=== PATIENT | female | born 1960 | race Caucasian/White ===

== ENCOUNTER 2025-02-09 07:43 | Inpatient (IN) | payer MEDICARE, OTHER ==
[~2025-02-09] VITALS: Ht 162.6 cm; Wt 65.8 kg
[2025-02-09] MEDS ORDERED: dexaMETHasone SOD PHOSPHATE 1 ML ONE (09:11)
[2025-02-09] MEDS ORDERED: VANCOMYCIN 1 GM VIAL ONE (09:11)
[2025-02-09] MEDS ORDERED: LIDOCAINE 2%-EPI 1:100,000 30 ML VIAL ONE (09:11)
[2025-02-09 12:08] VITALS: BP 147/71; TEMP 97.6; O2SAT 96
[2025-02-09] MEDS ORDERED: LOSA25TA27 PO (12:13)
[2025-02-09] MEDS: IV NS 0.9% 1,000 ML IV PRN (13:43)
[2025-02-09] MEDS: ACETAMINOPHEN 325 MG TABLET PO PRN (13:51)
[2025-02-09] MEDS ORDERED: HYDROMORPHONE INJ 2 MG/ML DISP.SYRIN IV PRN (14:00)
[2025-02-09] MEDS ORDERED: ONDANSETRON HCL/PF 4 MG/2 ML VIAL IVP PRN ×2 (14:00→14:30)
[2025-02-09] MEDS ORDERED: MAGNESIUM HYDROXIDE 30 ML UDC PO PRN (14:30)
[2025-02-09] MEDS ORDERED: ACETAMINOPHEN 325 MG TABLET PO PRN (14:30)
[2025-02-09] MEDS ORDERED: Z GUARD REMEDY 4 OZ OINT TP PRN (14:30)
[2025-02-09] MEDS ORDERED: MAG HYDROX/AL HYDROX/SIMETH 30 ML UDC PO PRN (14:30)
[2025-02-09] MEDS: LOSARTAN POTASSIUM 25 MG TABLET PO SCH (16:43)
[2025-02-09 16:47] VITALS: BP 139/70; TEMP 97.5; O2SAT 94
[2025-02-09 20:00] VITALS: BP 133/63; TEMP 98.1; O2SAT 95
[2025-02-09] MEDS: VANCOMYCIN 1 GM in IV D5W 250ml IV SCH (20:10)
[2025-02-10 09:16] VITALS: BP 130/60; TEMP 98.1; O2SAT 97
== END 2025-02-10 10:15 | disposition home or self-care (01) | DRG 142 ==
LOC: DS 07:43 → MED 11:38
PROVIDERS: ADMIT Internal Medicine; ATTEND Internal Medicine
PROC: 0NSR04Z Reposition Maxilla with Internal Fixation Device, Open Approach (ICD-10-PCS; 2025-02-09)
PROC: 0NUR07Z Supplement Maxilla with Autologous Tissue Substitute, Open Approach (ICD-10-PCS; 2025-02-09)
PROC: 0NSV04Z Reposition Left Mandible with Internal Fixation Device, Open Approach (ICD-10-PCS; 2025-02-09)
PROC: 0NUV07Z Supplement Left Mandible with Autologous Tissue Substitute, Open Approach (ICD-10-PCS; 2025-02-09)
PROC: 0N5V0ZZ Destruction of Left Mandible, Open Approach (ICD-10-PCS; 2025-02-09)
PROC: 0N5R0ZZ Destruction of Maxilla, Open Approach (ICD-10-PCS; principal; 2025-02-09 10:00)
DX: S02.40DA Maxillary fracture, left side, initial encounter for closed fracture (principal); S02.69XA Fracture of mandible of other specified site, initial encounter for closed fracture; X58.XXXA Exposure to other specified factors, initial encounter; M27.2 Inflammatory conditions of jaws; J32.0 Chronic maxillary sinusitis; I10 Essential (primary) hypertension; Z82.49 Family history of ischemic heart disease and other diseases of the circulatory system; M27.49 Other cysts of jaw; D16.4 Benign neoplasm of bones of skull and face; I34.0 Nonrheumatic mitral (valve) insufficiency; Y93.9 Activity, unspecified; Y92.009 Unspecified place in unspecified non-institutional (private) residence as the place of occurrence of the external cause
CPT/HCPCS: 88305-TC; 88311-TC; A4223; A4338; C1713; G0378; J0461; J0690; J1100; J2704; J3370; J3490; J7030; J7060

== ENCOUNTER 2025-06-15 09:19 | Inpatient (IN) | payer MEDICARE, OTHER ==
[~2025-06-15] VITALS: Ht 160 cm; Wt 65.8 kg
[~2025-06-15 09:19] MED LIST: LOSA25TA27 PO
[2025-06-15 10:28] LABS: INR 1.01 (0.91-1.10)
[2025-06-15] MEDS ORDERED: LIDOCAINE 2%-EPI 1:100,000 30 ML VIAL ONE (11:32)
[2025-06-15] MEDS ORDERED: dexaMETHasone SOD PHOSPHATE 2 ML ONE (11:32)
[2025-06-15] MEDS ORDERED: VANCOMYCIN 1 GM VIAL ONE (11:32)
[2025-06-15] MEDS ORDERED: FENTANYL PF 100MCG/2ML AMPUL ONE (12:35)
[2025-06-15] MEDS ORDERED: ANAS1TAB50 PO (14:53)
[2025-06-15 15:16] VITALS: BP 134/79; TEMP 98.3; O2SAT 98
[2025-06-15] MEDS ORDERED: ONDANSETRON HCL/PF 4 MG/2 ML VIAL IVP PRN (15:30)
[2025-06-15] MEDS ORDERED: ACETAMINOPHEN 325 MG TABLET PO PRN (15:30)
[2025-06-15] MEDS ORDERED: HYDROMORPHONE 1 MG/1 ML DISP.SYRIN IV PRN (15:30)
[2025-06-15] MEDS: IV NS 0.9% 1,000 ML IV PRN (15:35)
[2025-06-15 16:00] VITALS: BP 112/60; TEMP 98.4; O2SAT 96
[2025-06-15 20:00] VITALS: BP 132/63; TEMP 97.3; O2SAT 95
[2025-06-15] MEDS: VANCOMYCIN 1 GM in IV D5W 250ml IV SCH (22:39)
[2025-06-16 07:30] VITALS: BP 142/76; TEMP 97.5; O2SAT 98
[2025-06-16 08:08] LABS: PLATELET COUNT (AUTO) 225 K/uL (150-450); RED BLOOD CELL COUNT(AUTO) 4.23 MIL/uL (4.0-5.2); RED CELL DISTRIBUTION WIDTH 13.0 % (11.5-15.0); WHITE BLOOD COUNT (AUTO) 10.9 K/uL (4.3-11.0)
[2025-06-16] MEDS: LOSARTAN POTASSIUM 25 MG TABLET PO SCH (08:30)
[2025-06-16] MEDS: ANASTROZOLE 1 MG TABLET PO SCH (08:30)
[2025-06-16 08:44] LABS: CALCIUM, SERUM 9.2 mg/dL (8.5-10.1); CREATININE 0.8 mg/dL (0.6-1.3); PHOSPHORUS 3.2 mg/dL (2.5-4.9); SODIUM SERUM 140.0 mmol/L (136-145); UREA NITROGEN, BLOOD 21.0 mg/dL (7-18)
== END 2025-06-16 12:37 | disposition home or self-care (01) | DRG 496 ==
LOC: DS 09:19 → MED 15:16
PROVIDERS: ADMIT Nurse Practitioner Family; ATTEND Nurse Practitioner Family
PROC: 0N5R0ZZ Destruction of Maxilla, Open Approach (ICD-10-PCS; 2025-06-15)
PROC: 0N5V0ZZ Destruction of Left Mandible, Open Approach (ICD-10-PCS; 2025-06-15)
PROC: 0CBH0ZZ Excision of Left Submaxillary Gland, Open Approach (ICD-10-PCS; 2025-06-15)
PROC: 0NPW04Z Removal of Internal Fixation Device from Facial Bone, Open Approach (ICD-10-PCS; principal; 2025-06-15 12:20)
DX: T84.69XA Infection and inflammatory reaction due to internal fixation device of other site, initial encounter (principal); S02.40DK Maxillary fracture, left side, subsequent encounter for fracture with nonunion; S02.69XK Fracture of mandible of other specified site, subsequent encounter for fracture with nonunion; I10 Essential (primary) hypertension; Z82.49 Family history of ischemic heart disease and other diseases of the circulatory system; Z85.3 Personal history of malignant neoplasm of breast; I34.0 Nonrheumatic mitral (valve) insufficiency; D16.5 Benign neoplasm of lower jaw bone; M89.38 Hypertrophy of bone, other site; Y83.8 Other surgical procedures as the cause of abnormal reaction of the patient, or of later complication, without mention of misadventure at the time of the procedure; Y92.009 Unspecified place in unspecified non-institutional (private) residence as the place of occurrence of the external cause
CPT/HCPCS: 36415; 80048-TC; 83735-TC; 84100-TC; 85025-TC; 85610-TC; 85730-TC; 88300-TC; 88305-TC; 88311-TC; A4217; A4223; A4338; G0378; J0360; J0690; J1100; J2704; J3010; J3373; J3490; J7030; J7060